=== PATIENT | female | born 1960 | race Caucasian/White ===

== ENCOUNTER 2020-10-11 21:58 | Outpatient (CLI) | payer OTHER | END 2020-10-11 21:59 | disposition critical access hospital (66) | LOC: EMS 21:58 | PROVIDERS: ATTEND Emergency Medicine | DX: R29.898 Other symptoms and signs involving the musculoskeletal system (principal) | CPT/HCPCS: A0425; A0429 ==

== ENCOUNTER 2020-10-11 22:28 | Emergency (ER) | payer OTHER ==
--- NOTE | 2020-10-11 22:41 | ED Physician Documentation ---
PD HPI FOCAL NEURO - Stated complaint Stated Complaint: L ARM WEAKNESS - Chief complaint Chief Complaint: Neuro - History obtained from History obtained from: Patient, EMS - History of Present Illness Timing - onset: Enter time (20:45), Today Timing - details: Abrupt onset Severity of deficit: Moderate Weakness: Arm, Left Associated symptoms: No: Headache, Nausea / vomiting, Seizure, Syncope, Fall, Head injury, Chest pain, Neck pain, Back pain, Fever Contributing factors: negative: Anticoagulated, Vascular dz, Atrial fibrillation, Prosthetic heart valve Baseline status: positive: A&OX3, ambulatory, indep Similar symptoms before: Has not had sx before Recently seen: Not recently seen - Additional information Additional information: At approximately 8:45 PM tonight while awake at home, patient had sudden onset of LUE weakness. She thought maybe her arm "was asleep" (per patient) and thus did not call 911 for another 30 minutes. Denies h/o similar symptoms, denies CVA history. Review of Systems Constitutional: reports: Reviewed and negative Eyes: reports: Reviewed and negative Ears: reports: Reviewed and negative Nose: reports: Reviewed and negative Throat: reports: Reviewed and negative Cardiac: reports: Reviewed and negative Respiratory: reports: Reviewed and negative GI: reports: Reviewed and negative : denies: Incontinent Skin: reports: Reviewed and negative Musculoskeletal: reports: Reviewed and negative Neurologic: reports: Focal weakness, Numbness (EMS report that patient described initial LUE numbness that then became LUE weakness (patient denies having had numbness)). denies: Generalized weakness, Difficulty speaking, Near syncope, Syncope, Confused, Altered mental status, Headache, Head injury, LOC Psychiatric: reports: Reviewed and negative PD PAST MEDICAL HISTORY - Past Medical History Past Medical History: Yes Cardiovascular: Hypertension - Past Surgical History Past Surgical History: No - Present Medications Home Medications: Ambulatory Orders Medication Instructions Recorded Confirmed Losartan [Cozaar] 50 mg PO QPM 10/12/20 10/12/20 - Allergies Allergies/Adverse Reactions: Allergies Allergy/AdvReac Type Severity Reaction Status Date / Time No Known Drug Allergies Allergy Verified 10/11/20 22:40 - Living Situation Living Arrangement: reports: At home - Social History Does the pt smoke?: No PD ED PE NORMAL - Vitals Vital signs reviewed: Yes - General General: Alert and oriented X 3, No acute distress, Well developed/nourished - HEENT HEENT: PERRL, EOMI, Moist mucous membranes - Neck Neck: Supple, no meningeal sign - Cardiac Cardiac: RRR, No murmur, No gallop, No rub - Respiratory Respiratory: No respiratory distress, Clear bilaterally - Abdomen Abdomen: Soft, Non tender - Derm Derm: Normal color, Warm and dry - Extremities Extremities: No tenderness to palpate, Normal ROM s pain, No edema - Neuro Neuro: Alert and oriented X 3, 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, Normal speech Eye Opening: Spontaneous Motor: Obeys Commands Verbal: Oriented GCS Score: 15 - Psych Psych: Normal mood, Normal affect NIHSS - Time Time: 22:30 - Level of Consciousness Level of consciousness: (0) Alert, Keenly responsive LOC Questions: (0) Answers both Q's correct LOC Commands: (0) Performs both correctly - Gaze Best Gaze: (0) Normal - Visual Visual: (0) No loss - Facial Palsy Facial Palsy: (0) Normal, symmetrical movement - Motor Arms (both separate) Motor Arm (right): (0) No drift Motor Arm (left): (1) Drift - Motor Legs (both separate) Motor Leg (right): (0) No drift Motor Leg (left): (1) Drift - Limb Ataxia Limb Ataxia: (1) Present in 1 limb - Sensory Sensory: (1) Nsyt-fd-kopxghht loss (LUE) - Best Language Best Language: (0) No aphasia - Dysarthria Dysarthria: (0) Normal - Extinction and Inattention (formally neg Extinction and inattention: (0) No abnormality - Total Score/Results Total Score/Result: 4 Results - Vitals Vitals: Vital Signs - 24 hr 10/11/20 10/11/20 10/11/20 22:28 23:04 23:30 Temperature 36.7 C 37.4 C 36.5 C Heart Rate 90 85 82 Respiratory 21 12 20 Rate Blood Pressure 124/84 H 130/86 H 127/77 O2 Saturation 97 100 98 10/12/20 10/12/20 10/12/20 00:12 00:29 00:30 Temperature 36.4 C L 36.7 C Heart Rate 82 82 84 Respiratory 15 21 16 Rate Blood Pressure 137/89 H 137/90 H 137/90 H O2 Saturation 98 99 98 03/04/2610/12/20 10/12/20 01:00 01:10 01:30 Temperature 36.8 C Heart Rate 80 80 81 Respiratory 15 16 17 Rate Blood Pressure 122/88 H 117/83 H 114/82 H O2 Saturation 97 97 95 10/12/20 01:40 Temperature 37.0 C Heart Rate 78 Respiratory 16 Rate Blood Pressure 114/87 H O2 Saturation 98 Oxygen O2 Source Room air - EKG (time done) No standard instances Rate: Rate (enter#) (80) Rhythm: NSR [place]: Normal Intervals: Normal [place] QRS: Normal Ischemia: Q waves (V1, V2), Other (minimal ST elevation isolated to V2) - Labs Labs: Laboratory Tests 10/11/20 10/11/20 10/11/20 22:37 22:37 22:37 WBC 6.0 RBC 4.21 Hgb 13.7 Hct 42.2 MCV 100.2 H MCH 32.5 H MCHC 32.5 RDW 13.2 Plt Count 199 MPV 8.6 Neut # (Auto) 3.1 Lymph # (Auto) 2.0 [place] # (Auto) 0.6 Eos # (Auto) 0.2 Baso # (Auto) 0.1 Absolute Nucleated RBC 0.00 Nucleated RBC % 0.0 PT 11.0 INR 1.0 APTT 26.9 Sodium 143 Potassium 3.7 Chloride 105 Carbon Dioxide 24 Anion Gap 14.0 H BUN 15 Creatinine 0.7 Estimated GFR (MDRD) 85 L Glucose 101 H Calcium 9.9 Total Bilirubin 0.5 AST 24 ALT 15 Alkaline Phosphatase 46 Troponin I High Sens Total Protein 7.4 Albumin 4.3 Globulin 3.1 Albumin/Globulin Ratio 1.4 Nasal Adenovirus (PCR) Nasal B. parapertussis DNA (PCR) Nasal Coronavir 229E PCR Nasal Coronavir HKU1 PCR Nasal Coronavir NL63 PCR Nasal Coronavir OC43 PCR Nasal Enterovir/Rhinovir PCR Nasal Influenza B PCR Nasal Influenza A PCR Nasal Parainfluen 1 PCR Nasal Parainfluen 2 PCR Nasal Parainfluen 3 PCR Nasal Parainfluen 4 PCR Nasal RSV (PCR) Nasal B.pertussis DNA PCR Nasal C.pneumoniae (PCR) Jonny Human Metapneumo PCR Nasal M.pneumoniae (PCR) Nasal SARS-CoV-2 (PCR) 10/11/20 10/12/20 22:37 00:15 WBC RBC Hgb Hct MCV MCH MCHC RDW Plt Count MPV Neut # (Auto) Lymph # (Auto) [place] # (Auto) Eos # (Auto) Baso # (Auto) Absolute Nucleated RBC Nucleated RBC % PT INR APTT Sodium Potassium Chloride Carbon Dioxide Anion Gap BUN Creatinine Estimated GFR (MDRD) Glucose Calcium Total Bilirubin AST ALT Alkaline Phosphatase Troponin I High Sens 3.7 Total Protein Albumin Globulin Albumin/Globulin Ratio Nasal Adenovirus (PCR) NOT DETECTED Nasal B. parapertussis DNA (PCR) NOT DETECTED Nasal Coronavir 229E PCR NOT DETECTED Nasal Coronavir HKU1 PCR NOT DETECTED Nasal Coronavir NL63 PCR NOT DETECTED Nasal Coronavir OC43 PCR NOT DETECTED Nasal Enterovir/Rhinovir PCR NOT DETECTED Nasal Influenza B PCR NOT DETECTED Nasal Influenza A PCR NOT DETECTED Nasal Parainfluen 1 PCR NOT DETECTED Nasal Parainfluen 2 PCR NOT DETECTED Nasal Parainfluen 3 PCR NOT DETECTED Nasal Parainfluen 4 PCR NOT DETECTED Nasal RSV (PCR) NOT DETECTED Nasal B.pertussis DNA PCR NOT DETECTED Nasal C.pneumoniae (PCR) NOT DETECTED Jonny Human Metapneumo PCR NOT DETECTED Nasal M.pneumoniae (PCR) NOT DETECTED Nasal SARS-CoV-2 (PCR) NOT DETECTED - Rads (name of study) CTH Radiology: Prelim report reviewed, See rad report CTA head Radiology: Prelim report reviewed, See rad report CTA neck Radiology: Prelim report reviewed, See rad report CXR Radiology: Prelim report reviewed, See rad report PD MEDICAL DECISION MAKING - ED course Complexity details: reviewed results, re-evaluated patient, considered differential, d/w patient ED course: Patient presents with H+P s/o CVA with left-sided deficits of weakness and numbness. On my NIHSS exam, she scores 4 (1 point each for LUE drift, LLE drift, unable to correctly perform left finger-nose, and decreased sensation (light touch) LUE). When neurology performed the NIHSS, patient reported no LTS discrepency. After tPA was given, she reported resolution of LLE weakness. D/W Dr. Cohen (neurology irrigation equipment mechanic for telestroke), and she evaluated patient via telestroke video console. Dr. Cohen recommends tPA; risks and benefits of tPA were d/w patient, contraindications reviewed with patient and none are present, and patient consents to receive tPA. I also d/w irrigation equipment mechanic for [facility], agrees with transfer to [facility] by air. I also d/w Dr. Abby Penaloza (ballet dancer at [facility]), accepts patient for transfer. When ready for transfer to [facility] stretcher, patient noted left hip swelling. I examined the patient and find a small, painless, rubbery mass anterolateral aspect of left hip area. It is approximately 1.5 cm diameter. No recent injury to the area. I doubt this represents an acute process such as subcutaneous bleeding, but should it enlarge, it is a compressible area and pressure can be applied should it get bigger. - TPA CVA checklist Inclusion crititeria: positive: Sig neuro deficit, CT no bleed, Onset know < 4.5 hr Absolute contraindications: negative: SBP>185 DBP>110 s/p tx, CT shows bleed, CT shows major est CVA, Platelets <100K, PTT > 40, INR >1.7, Known bleeding disorder, Surgery/trauma < 15 days, Seizure at onset, Internal bleed < 22 days, Brain/spine surg < 3 m, Head trauma < 3 m, CVA < 3 months, Any hx ICH, Any hx brain aneurysm, Any hx brain AVM, Any hx brain tumor, Suspect SAH Relative contraindications: negative: Too severe (NIHSS>22), Too mild, Rapid improvement, Glusose <50 >400, Life expectancy < 1 yr, Severe comorbid illness, Bacterial endocarditis, Severe hepatic dz, Severe renal dz, Hemorrhagic eye condition, Septic thrombophlebitis, Infected AV shunt, On coumadin, , Advanced age, Left heart thrombus Departure - Departure Disposition: 02 Transfer Acute Care Hosp Clinical Impression: Cerebrovascular accident (CVA) Qualifiers: CVA mechanism: unspecified Qualified Code(s): I63.9 - Cerebral infarction, unspecified Condition: Stable Discharge Date/Time: 10/12/20 02:18
[2020-10-11] MEDS ORDERED: ALTEPLASE IV STA (23:06)
[2020-10-11] MEDS ORDERED: WATER FOR INJECTION STERILE IV STA (23:06)
[2020-10-11 23:12] LABS: BASOPHILS # (AUTO) 0.1 10^3/uL (0.0-0.1); EOSINOPHILS # (AUTO) 0.2 10^3/uL (0.0-0.7); EOSINOPHILS % (AUTO) 3.5 %; HCT - HEMATOCRIT 42.2 % (37.0-47.0); HGB - HEMOGLOBIN 13.7 g/dL (12.0-16.0); LYMPHOCYTES % (AUTO) 33.1 %; MEAN CORPUSCULAR HEMOGLOBIN 32.5 pg (27.0-31.0); MEAN CORPUSCULAR HGB CONC 32.5 g/dL (32.0-36.0); MEAN CORPUSCULAR VOLUME 100.2 fL (81.0-99.0); MEAN PLATELET VOLUME 8.6 fL (7.9-10.8); MONOCYTES # (AUTO) 0.6 10^3/uL (0.0-1.0); MONOCYTES % (AUTO) 10.8 %; NEUTROPHILS # (AUTO) 3.1 10^3/uL (1.5-6.6); NEUTROPHILS % (AUTO) 51.3 %; PLT - PLATELET COUNT 199 10^3/uL (130-450); RED BLOOD COUNT 4.21 10^6/uL (4.20-5.40); RED CELL DISTRIBUTION WIDTH 13.2 % (12.0-15.0)
[2020-10-11 23:27] LABS: PARTIAL THROMBOPLASTIN TIME 26.9 secs (24.9-33.3)
[2020-10-11] MEDS ORDERED: ALTEPLASE 100 MG VIAL ONE (23:28)
[2020-10-11 23:30] LABS: ALBUMIN 4.3 g/dL (3.2-5.5); ALBUMIN/GLOBULIN RATIO 1.4 (1.0-2.2); BILIRUBIN,TOTAL 0.5 mg/dL (0.2-1.0); CALCIUM 9.9 mg/dL (8.5-10.3); CREATININE 0.7 mg/dL (0.4-1.0); POTASSIUM 3.7 mmol/L (3.5-5.0); TOTAL PROTEIN 7.4 g/dL (6.7-8.2)
[2020-10-11] MEDS ORDERED: IOVERSOL 320 100 ML VIAL IVP ONE (23:50)
[2020-10-12] MEDS ORDERED: IOVERSOL 320 100 ML VIAL IVP ONE (00:14)
[2020-10-12 01:34] LABS: B. PARAPERTUSSIS- RESP PCR PAN NOT DETECTED; B. PERTUSSIS- RESP PCR PANEL NOT DETECTED; C. PNEUMONIAE- RESP PCR PANEL NOT DETECTED; CORONAVIRUS 229E-RESP PCR NOT DETECTED; CORONAVIRUS HKU1-RESP PCR NOT DETECTED; CORONAVIRUS NL63-RESP PCR NOT DETECTED; CORONAVIRUS OC43-RESP PCR NOT DETECTED; HUMAN METAPNEUMOVIRUS NOT DETECTED; INFLUENZA A- RESP PCR PANEL NOT DETECTED; INFLUENZA B - RESP PCR PANEL NOT DETECTED; M. PNEUMONIAE- RESP PCR PANEL NOT DETECTED; PARAINFLUENZA VIRUS 1 NOT DETECTED; PARAINFLUENZA VIRUS 2 NOT DETECTED; PARAINFLUENZA VIRUS 3 NOT DETECTED; PARAINFLUENZA VIRUS 4 NOT DETECTED; RHINOVIRUS/ENTEROVIRUS NOT DETECTED; RSV- RESP PCR PANEL NOT DETECTED; SARS-CoV-2 -RESP PCR PANEL NOT DETECTED
[2020-10-12 01:41] VITALS: BP 114/87
--- NOTE | 2020-10-12 08:22 | CT Report ---
PROCEDURE: HEAD WO INDICATIONS: left sided weakness TECHNIQUE: Noncontrast 4.5 mm thick angled axial sections acquired from the foramen magnum to the vertex. For r adiation dose reduction, the following was used: automated exposure control, adjustment of mA and/or kV according to patient size. COMPARISON: None. FINDINGS: Image quality: Excellent. CSF spaces: Basal cisterns are patent. No extra-axial fluid collections. Ventricles are normal in size and shape. Brain: No midline shift. No intracranial masses or hemorrhage. Nuñez-white matter interface is norm al. There are small hypodensities in the basal ganglia and bilateral thalami. Mild patchy hypodensit y in the periventricular white matter. Skull and face: Calvarium and visualized facial bones are intact, without suspicious lesions. Sinuses: Visualized sinuses and mastoids are clear. IMPRESSION: 1. No acute intracranial process. 2. Changes of chronic small vessel ischemia. Reviewed by: Deanna Wu MD on 10/12/2020 8:20 AM [facility] Approved by: Deanna Wu MD on 10/12/2020 8:20 AM PST Station ID: [id number]
--- NOTE | 2020-10-12 08:23 | XRAY Report ---
PROCEDURE: Chest 1 View X-Ray INDICATIONS: left sided weakness TECHNIQUE: One view of the chest was acquired. COMPARISON: None FINDINGS: Surgical changes and devices: None. Lungs and pleura: No pleural effusions or pneumothorax. Lungs are hyperinflated but clear. Mediastinum: Mediastinal contours appear normal. Heart size is normal. Bones and chest wall: No suspicious bony lesions. Overlying soft tissues appear unremarkable. IMPRESSION: 1. Mild hyperinflation suggests asthma/COPD. Reviewed by: Deanna Wu MD on 10/12/2020 8:22 AM PST Approved by: Deanna Wu MD on 10/12/2020 8:22 AM [facility] Station ID: [id number]
--- NOTE | 2020-10-12 08:37 | CT Report ---
PROCEDURE: ANGIO HEAD W/WO INDICATIONS: CVA CONTRAST: IV CONTRAST: Optiray 320 ml: 80 PO CONTRAST: *NO PO CONTRAST TECHNIQUE: Precontrast 4.5 mm thick angled axial sections acquired from the foramen magnum to the vertex. Afte r the administration of intravenous contrast, 1 mm thick sections acquired through the [place] of [place] is. Postcontrast 4.5 mm thick sections then re-acquired from the foramen magnum to the vertex. 3-di mensional ahuvwur-ynbjfuecn-hhvbqbmdjs (MIP) and/or volume rendering reformats were acquired of the c entral intracranial vasculature. For radiation dose reduction, the following was used: automated ex posure control, adjustment of mA and/or kV according to patient size. COMPARISON: CT head, CT angiography neck 10/11/20 FINDINGS: Image quality: Excellent. Anterior circulation: Intracranial internal carotid arteries are normal in size and flow. The flow within the paired anterior cerebral arteries is normal and symmetric. The flow within the middle cer ebral arteries is normal and symmetric. The anterior communicating artery is seen. No aneurysms are seen. Posterior circulation: Visualized portions of the vertebral arteries demonstrate normal caliber, and join to form a normal appearing basilar artery. Flow within the posterior cerebral arteries is norm al and symmetric. No aneurysms are seen. Vertebral arteries are considered codominant. There is per sistence of a left-sided circulation, consistent with congenital variation. CSF spaces: Ventricles are normal in size and shape. Basal cisterns are patent. No extra-axial flu id collections. Brain: No midline shift. No intracranial bleeds or masses. Nuñez-white matter interface appears int act. Skull and face: Calvarium and facial bones appear intact, without suspicious lesions. Sinuses: Visualized sinuses demonstrate mucus retention cyst versus polyp in the right maxillary sin us.. IMPRESSION: 1. No acute intracranial process. 2. No areas of hemodynamically significant stenosis, vascular occlusion or aneurysmal dilation within the anterior or posterior circulation. The above findings are concordant with preliminary report. Reviewed by: Ev Valera MD on 10/12/2020 8:36 AM PST Approved by: Ev Valera MD on 10/12/2020 8:36 AM PST Station ID: [id number]
--- NOTE | 2020-10-12 09:36 | CT Report ---
PROCEDURE: ANGIO NECK W INDICATIONS: CVA CONTRAST: IV CONTRAST: Optiray 320 ml: 80 PO CONTRAST: *NO PO CONTRAST TECHNIQUE: After the administration of intravenous contrast, 1.5 mm axial sections acquired from the aortic arch to the [place] of [place]. Coronal 3-D maximum intensity projection (MIP) and/or volume rendering ref ormats were then performed. For radiation dose reduction, the following was used: automated exposur e control, adjustment of mA and/or kV according to patient size. COMPARISON: CT brain, CTA head 10/11/2020 FINDINGS: Image quality: Excellent. The origins of the left and right common, internal and external carotid arteries demonstrate no areas of hemodynamically significant stenosis, vascular occlusion or aneurysmal dilation. Origin of the le ft vertebral artery and right vertebral artery demonstrate no areas of hemodynamically significant st enosis, vascular occlusion or aneurysmal dilation. Left vertebral artery arises directly off the aort ic arch, consistent with congenital variation. Limited, visualized portions of the subclavian vascula ture are unremarkable. Scarring is noted at the lung apices. IMPRESSION: There are no areas of hemodynamically significant stenosis, vascular occlusion or aneurysmal dilation within the neck vasculature. The above findings are concordant with preliminary report. The estimate of stenosis included in the report of the imaging study was calculated using the NASCET method Reviewed by: Ev Valera MD on 10/12/2020 9:34 AM PST Approved by: Ev Valera MD on 10/12/2020 9:34 AM PST Station ID: [id number]
== END 2020-10-12 02:18 | disposition short-term general hospital (02) ==
LOC: ED 22:28
DX: I63.9 Cerebral infarction, unspecified (principal); R29.704 NIHSS score 4; R22.42 Localized swelling, mass and lump, left lower limb; I10 Essential (primary) hypertension; Z20.822 Contact with and (suspected) exposure to COVID-19
CPT/HCPCS: 0202U; 36415; 37195; 70450; 70496; 70498; 71045; 80053; 84484; 85025; 85610; 85730; 93005; 99284; 99285; J2997; Q9967

== ENCOUNTER 2023-03-05 08:00 | Outpatient (CLI) | payer OTHER ==
--- NOTE | 2023-03-05 17:22 | XRAY Report ---
PROCEDURE: Knee 3 View LT INDICATIONS: CONTUSION OF LEFT KNEE TECHNIQUE: 3 views of the left knee(s) were acquired. COMPARISON: None. FINDINGS: Bones: There is a moderately displaced, comminuted fracture of the superior patella. Underlying degenerative changes are seen, including moderate to severe bilateral patellofemoral joint space narrowing, with associated remodeling change. Soft tissues: There is a moderate knee joint effusion. No suspicious soft tissue calcifications or m asses. IMPRESSION: Moderately displaced superior patella fracture. There is a moderate joint effusion. Underlying degenerative changes are seen, which are worst involving the lateral patellofemoral compar tment. Reviewed by: Tu Bae MD on 03/05/2023 4:21 PM [facility] Approved by: Tu Bae MD on 03/05/2023 4:21 PM [facility] Station ID: [id number]
== END 2023-03-05 23:59 | disposition home or self-care (01) ==
LOC: DI.S 08:00
PROVIDERS: ATTEND Physician Assistant Medical
DX: S82.042A Displaced comminuted fracture of left patella, initial encounter for closed fracture (principal)

== ENCOUNTER 2023-03-15 08:00 | Outpatient (CLI) | payer OTHER ==
--- NOTE | 2023-03-16 10:43 | XRAY Report ---
PROCEDURE: Knee 2 View LT INDICATIONS: LEFT PATELLA FRACTURE TECHNIQUE: 2 views of the left knee(s) were acquired. COMPARISON: X-ray left knee, 03/05/2023. FINDINGS: Bones: There is a patellar fracture involving the superior pole with moderate displacement. No susp icious bony lesions. Mild tricompartmental osteoarthritic changes noted. Soft tissues: Small knee joint effusion, slightly decreased compared to last exam. No suspicious sof t tissue calcifications or masses. Prepatellar and suprapatellar soft tissue swelling. IMPRESSION: 1. Stable appearance of patellar fracture. 2. Decreased knee joint effusion. Reviewed by: Kaye Kim MD on 03/16/2023 10:41 AM PDT Approved by: Kaye Kim MD on 03/16/2023 10:41 AM PDT Station ID: [id number]
== END 2023-03-15 23:59 | disposition home or self-care (01) ==
LOC: DI.WOS 08:00
PROVIDERS: ATTEND Orthopaedic Surgery
DX: S82.032A Displaced transverse fracture of left patella, initial encounter for closed fracture (principal); M17.12 Unilateral primary osteoarthritis, left knee; M25.462 Effusion, left knee

== ENCOUNTER 2023-04-12 08:00 | Outpatient (CLI) | payer OTHER ==
--- NOTE | 2023-04-12 20:50 | XRAY Report ---
PROCEDURE: Knee 2 View LT INDICATIONS: LEFT PATELLA FX TECHNIQUE: 2 views of the left knee(s) were acquired. COMPARISON: 03/15/2023 FINDINGS: Bones: Redemonstrated transverse fracture of the upper patella. Slight decrease in distraction of fr acture fragments. Soft tissues: Small knee joint effusion. No suspicious soft tissue calcifications. IMPRESSION: Slight decrease in distraction of patellar fracture fragments. Reviewed by: Aubrey Santos MD on 04/12/2023 8:49 PM PDT Approved by: Aubrey Santos MD on 04/12/2023 8:49 PM PDT Station ID: [id number]
== END 2023-04-12 23:59 | disposition home or self-care (01) ==
LOC: DI.WOS 08:00
PROVIDERS: ATTEND Orthopaedic Surgery
DX: S82.032D Displaced transverse fracture of left patella, subsequent encounter for closed fracture with routine healing (principal)

== ENCOUNTER 2023-05-17 08:00 | Outpatient (CLI) | payer OTHER ==
--- NOTE | 2023-05-17 16:41 | XRAY Report ---
PROCEDURE: Knee 2 View LT INDICATIONS: LEFT KNEE FRACTURE TECHNIQUE: 2 views of the left knee(s) were acquired. COMPARISON: 04/12/2023 FINDINGS: Bones: No change in mildly displaced comminuted superior patellar fracture. No suspicious bony lesio ns. Soft tissues: No knee joint effusion. No suspicious soft tissue calcifications or masses. IMPRESSION: No change in patellar fracture. Reviewed by: Hitesh Schofield MD on 05/17/2023 4:39 PM PDT Approved by: Hitesh Schofield MD on 05/17/2023 4:39 PM PDT Station ID: [id number]
== END 2023-05-17 23:59 | disposition home or self-care (01) ==
LOC: DI.WOS 08:00
PROVIDERS: ATTEND Orthopaedic Surgery
DX: S82.042A Displaced comminuted fracture of left patella, initial encounter for closed fracture (principal)

== ENCOUNTER 2023-06-13 09:08 | Outpatient (CLI) | payer OTHER ==
--- NOTE | 2023-06-13 10:08 | XRAY Report ---
PROCEDURE: Knee 2 View LT INDICATIONS: FRACTURE OF LEFT PATELLA TECHNIQUE: 2 views of the knee(s) were acquired. COMPARISON: X-ray left knee 05/17/2023 FINDINGS: Bones: Mildly displaced transverse oriented patellar fracture with mild osseous bridging. Degenerati ve changes are redemonstrated. No suspicious bony lesions. Soft tissues: Small knee joint effusion. No suspicious soft tissue calcifications or masses. IMPRESSION: No significant change in patella fracture. Reviewed by: Pee Diaz MD on 06/13/2023 10:07 AM PST Approved by: Pee Diaz MD on 06/13/2023 10:07 AM PST Station ID: [id number]
== END 2023-06-13 09:09 | disposition home or self-care (01) ==
LOC: DI.S 09:08
PROVIDERS: ATTEND Orthopaedic Surgery
DX: S82.032D Displaced transverse fracture of left patella, subsequent encounter for closed fracture with routine healing (principal)

== ENCOUNTER 2024-03-27 15:07 | Outpatient (CLI) | payer OTHER ==
--- NOTE | 2024-03-27 17:28 | DEXA Report ---
PROCEDURE: Dexa Spine and/or Hip INDICATIONS: OSTEOPOROSIS TECHNIQUE: Dual energy x-ray absorptiometry (DXA) was performed on a eMoov System. Regions measur ed are the AP Spine, femoral neck, and if needed forearm. COMPARISON: None FINDINGS: Lumbar Spine: Bone Mineral Density: 0.825 g/cm/cm,T score: -3. Left Femoral Neck: Bone Mineral Density: 0.647 g/cm/cm, T score: -2.8. Left Hip: Bone Mineral Density: 0.659 g/cm/cm,T score: -2.8. FRAX risk factors: None given. 10 year risk of major osteoporotic fracture: Calculi major osteoporotic fracture = hip, clinical vertebral, proximal humerus, distal forearm 10 year risk of hip fracture: Not calculated (T score greater or equal to -1.0: NORMAL) (T score from -1.1 to -2.4: OSTEOPENIA) (T score less than or equal to -2.5 to: OSTEOPOROSIS) Impression: By WHO criteria, this patient has osteoporosis. In the spine and hip Patients with diagnosis of osteoporosis or osteopenia should have regular bone mineral density assess ment. For those eligible for Medicare, routine testing is allowed once every 2 years. Testing frequ ency can be increased for patients who have rapidly progressing disease or for those who are receivin g medical therapy to restore bone mass. Reviewed by: Ev Valera MD on 03/27/2024 5:26 PM PDT Approved by: Ev Valera MD on 03/27/2024 5:26 PM PDT Station ID: [id number]
== END 2024-03-27 15:08 | disposition home or self-care (01) ==
LOC: DI 15:07
PROVIDERS: ATTEND Family Medicine
DX: M81.0 Age-related osteoporosis without current pathological fracture (principal)